=== PATIENT | female | born 1970 | race Caucasian/White ===

== ENCOUNTER 2019-02-08 11:02 | Day surgery (SDC) | payer OTHER ==
--- NOTE | 2019-02-07 21:09 | PDGENHP ---
History and Physical - Chief Complaint Right Hip Pain - History of Present Illness 1. Bilateral~Femoroacetabular impingement (KAREN) Cam type, Right symptomatic with labral tear 2. 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 ~Beverleyenjoys golf , snowboarding, cycling, hiking. Emerald's~right~hip pain started Jan 2018, with~no~recalled trauma or injury, and with~little~previous complaints~but nothing severe enough to cause her to seek care.~Beverleydoes not have~a known history of hip dysplasia. Presentation today is of~posterior~right~hip pain deep inside, but can also be anterior. ~The hip~does~wake her~at night and~does not~click and catch on~her. Sitting~can be a real struggle~for her~and can be worse than standing or walking.~Beverleydoes not~report suffering from lower back pain episodes. Beverleyhas not~participated in physical therapy and has~tried other conservative measures including chiropractic treatments, massage therapy, dry needling,~and electric stimulation.~Concepción~has not~received sufficient symptomatic improvement. Beverleyhas~utilized medication for pain management, including ASA.~Beverleyhas used medication for a few times a week since symptom onset~~. Beverleydenies issues with the left~hip. ~ Beverleyunderstands that~concepción~has a hip and pelvis problem which should be researched and wishes to get a better understanding of~her~hip status, followed by an establishment of a treatment strategy, hoping~concepción~would be able to get back to~her~well being active life. History: Past medical history:~~ Patient~~has no past medical history on file. Relevant familial history:~None which is relevant~ Past surgical history:~ No. Surgery Anesthesia Year Outcome 1 L breast lumpectomy Local 2017 No complications Beverleydenies problematic issues with general anesthesia in the past -- states she had a surgery that she cannot recall what it was in childhood and thinks she had general anesthesia then. I have reviewed, verified and agree with the past medical, surgical, family and social history. Current Medications:~has a current medication list which includes the following prescription(s): ibuprofen. ALLERGIES:~has No Known Allergies. Objective: Physical Examination: Beverleyis 5~feet~8~inches tall and weighs~142~Lbs. Beverleyis AAO x3; she~is well- nourished, in NAD. Skin is warm and dry. ~Breathing is non-labored. ~CV with RRR by pulse. Abdomen is soft, NTND. Currently,~concepción~walks with a~normal~gait. Trendelenburg sign is~negative~and proprioception~is reduced,~both~sides. She~presents~with mild~signs of joint laxity.~Beightons Score:~2 (L elbow, L knee) She~is fit looking. ~~ Lower spine examination is~negative~for sciatic or femoral nerve irritation with negative~SLR &~femoral stretch tests. Range of motion of the spine is normal~for flexion, extension, and rotations,~with no~associated pain. Strength, Sensation and pulses are~normal -~bilaterally Ankles and knees exams are~normal~and~no~mal-alignment is evident.~ Concepción~has~right~1~cm short leg length discrepancy. Thigh circumference is~symmetric~with no evidence for muscle atrophy~on both~ sides. Hip ROM (degrees): FL ER At 90~hip FL IR At 90~hip FL AB AD EX IR Neutral hip ER Neutral hip R 115 45 15 40 5 5 40 45 L 115 40 25 45 5 5 45 40 Specific hip and pelvis tests: Impingement Test SOTO Roll Add. Longus R +++ +++ Negative Negative L Negative Negative Negative Negative Glut. Med ITB Posterior Imp R +++ 5/5 strength Negative 5/5 strength +++~(posterior/lateral) L Negative 5/5 strength Negative 5/5 strength Negative Squeeze test measured~strong Bony Symphysis pubis is~pain free~to touch while concentric activity of the rectus abdominis, does not~produce pain at its insertion. Ilio Psos specific tests are~positive for pain during cycling for~the right hip~ and remarkable for non painful snap HF has~no pain~both hips. Lateral, posterior~capsule tenderness R side. Greater trochanteric burse is~painful~on the right hip. Piriformis tests: FAIR is~negative,~with no~local signs of neuritis related to sciatic nerve. SIJs examination is~produces pain on~right side~with~normal~SOTO in relation and local tenderness. Hamstrings tests are~negative~tendinopathy both hips. On a daily basis, the following percentages reflectLidia's overall total pain: Deep hip:~50% GT:~50% Imaging: Radiology studies which I~have personally reviewed, analyzed and measured are below: XR: AP of the hip and pelvis: Performed in a~good~technique Coccyx to pubic symphysis distance~1.9~cm. 13~degrees caudal [place]~Lines are preserved. Minimal~Pathological signs are seen in the Symphysis Pubis.~ Minimal~Pathological signs are seen at the Ischial~tuberosity. ~ Specific measurements show:~ 0 deg WB (13 deg corrected) NSA~ LCE Sourcil~Angle Sharp's angle Lat. Cam Lat. Pincer C.Over~sign Head~Coverage % ATDmm R 130 32(29) 1(2) 39(41) Neg Neg Neg 76% 22.2 L 130 31(32) 0(0) 40(40) Neg Neg Neg 85% 21.3 Pos. wall sign ISS NAD ~~Dysplasia Comments R Negative Negative 17.7~mm Negative L Negative Negative 18.9~mm Negative Sclerosis Sup. Lat. OA Cysts Joint Space-WBZ Joint Space-Medial R Negative Negative Negative 3.6~mm 3.4~mm L Negative Negative Negative 4.1~mm 3.7~mm X Table lateral: Anterior cam lesion is~seen~on both hips. Alpha Angle: ~ Right~56~degrees Left~52~degrees Impression and plan:Herson Loweryis a~48 y.o.~active female~suffering from symptomatic~Bilateral~ Femoroacetabular impingement (KAREN) Cam type~(RIGHT symptomatic)~and~Greater Trochanteric Bursitis~causing significant disability to~her~and altering~her~ sport and life activities. Physical examination, imaging, and~her~story correspond with the diagnosis mentioned above. I explained that femoroacetabular impingement (KAREN) arises due to a bony or soft tissue conflict between the femur (ball) and acetabulum (socket) caused by an abnormality in the shape of the hip joint. Over time, repetitive impingement can result in damage to the labrum and adjacent surface cartilage within the socket, ultimately giving rise to progressive osteoarthritis of the hip. I explained that although a labral tear can be a source of pain, it is rarely the root of the problem and typically occurs secondary to an underlying abnormality in the shape and mechanics of the hip joint. ~ I reviewed conservative treatment options for KAREN including activity modification to avoid positions of impingement, physical therapy, non-steroidal anti-inflammatory medications, and various injections (corticosteroid and PRP) aimed at reducing inflammation in the hip joint or/and preventing dynamic impingement. PRP injections may promote healing and reduce symptoms in certain cases but it will not repair chronically damaged tissue. Although these measures may help to buy time and reduce current level of symptoms, they are not a definitive solution to the problem given the underlying abnormality in the shape of the hip joint. Patients who have failed conservative management and continue to experience symptoms are candidates for hip arthroscopy, a minimally invasive surgery that can definitively address the underlying problem. Hip arthroscopy typically includes treating the labrum with either repair or reconstruction of the torn labrum; as well as addressing the underlying abnormalities by restoring the normal shape to the hip joint. ~If the cartilage is damaged a Microfracture~ surgical procedure may also be necessary to help stimulate the growth of fibrocartilage. ~If a patient requires a labral reconstruction or a Microfracture, the initial rehabilitation from the surgery may take longer, but the skilled nursing results are typically favorable. I have explained that because of her age and gender, the results of hip arthroscopy are less reproducible/predictable than with younger patients or male patients of the same age. I reviewed the technical aspects of hip arthroscopy including risks, benefits, and expected course of recovery. Emerald understands that hip arthroscopy is a minimally invasive outpatient procedure carried out through small incisions on the outer aspect of the hip joint. During surgery, the labral tear will be identified and either repaired or reconstructed using bone anchors and suture material. Additionally, any excessive bone will be removed with a high-speed anita to reshape the hip joint and restore normal anatomy. Risks include infection, bleeding, injury to nearby nerves or vessels, stiffness, persistent pain, instability, venous thromboembolic disease, and traction related complications including temporary foot numbness. Rarely, revision surgery may be required to address these problems. Overall recovery takes approximately 4 8 months depending on the extent of damage and degree of repair. In the event that the labral tissue quality is inadequate for successful repair and healing, Emerald understands that a labral reconstruction will be performed. This procedure entails placing a cadaver tissue graft within the hip joint and stabilizing it with bone anchors to build a new labrum. The overall recovery time for labral reconstruction is similar to that of labral repair, although the surgical procedure takes longer to perform. Beverleywill review the info presented. We will refer Emerald to PT at this time. In order to better evaluate the soft tissues and cartilage of the hip joint, I will order an MRI scan. In order to obtain more detailed information regarding the alignment, orientation, and shape of the bony hip and pelvis I will order a CT scan to be performed. The results of the CT scan, including femoral torsion and acetabular version measured values and 3D images, will aid me in deciding on the best treatment strategy and surgical pre-planning. Beverleywill return for a follow-up visit after her imaging studies and starting PT to see if she has any clinical improvement. Beverleyis happy with this plan. I have also supplied~her~with handouts, outlining the expected surgical treatment and rehab involved. I wish~Beverleyall the best, ~~ Libra Post MD History Information - Allergies/Home Medication List Allergies/Adverse Reactions: No Known Allergies Allergy (Unverified 02/01/19 12:22) Home Medications: Herbals/Supplements -Info Only 02/01/19 [Last Taken Unknown] I have personally reviewed and updated: medical history - Social History Smoking Status: Never smoked Review of Systems Review of Systems: Physical Exam Physical Exam:
[2019-02-08] MEDS ORDERED: PREGABALIN 150 MG CAP PO ONE (11:10)
[2019-02-08] MEDS ORDERED: ceFAZolin 2 GM/DEXTROSE 100 ML IV ONE (11:10)
[2019-02-08] MEDS ORDERED: ACETAMINOPHEN 500 MG TAB PO ONE (11:10)
[2019-02-08] MEDS ORDERED: LR 1,000 ML IV ONE (11:12)
--- NOTE | 2019-02-08 14:42 | PDANEPAE ---
ANE Past Medical History - Cardiovascular History Hx Hypertension: No Hx Arrhythmias: No Hx Chest Pain: No Hx Coronary Artery / Peripheral Vascular Disease: No Hx CHF / Valvular Disease: No Hx Palpitations: No - Pulmonary History Hx COPD: No Hx Asthma/Reactive Airway Disease: No Hx Recent Upper Respiratory Infection: No Hx Oxygen in Use at Home: No Hx Sleep Apnea: No Sleep Apnea Screening Result - Last Documented: Negative Pulmonary History Comment: EXERCISE INDUCED ASTHMA. NO INHALER - Neurologic History Hx Cerebrovascular Accident: No Hx Seizures: No Hx Dementia: No - Endocrine History Hx Diabetes: No - Renal History Hx Renal Disorders: No - Liver History Hx Hepatic Disorders: No - Neurological & Psychiatric Hx Hx Neurological and Psychiatric Disorders: No - Cancer History Hx Cancer: No - Congenital Disorder History Hx Congenital Disorders: No - GI History Hx Gastrointestinal Disorders: No - Other Health History Other Health History: NEG - Chronic Pain History Chronic Pain: Yes (R HIP) - Surgical History Prior Surgeries: HEMANGIOMA ABD INFANT. COLONOSCOPY ANE Review of Systems Review of Systems: - Exercise capacity METS (RN): 6 METS ANE Patient History - Allergies Allergies/Adverse Reactions: No Known Allergies Allergy (Unverified 02/01/19 12:22) - Home Medications Home Medications: Herbals/Supplements -Info Only 02/01/19 [Last Taken 1 Week Ago ~02/01/19] - NPO status NPO Since - Liquids (Date): 02/08/19 NPO Since - Liquids (Time): 08:00 NPO Since - Solids (Date): 02/07/19 NPO Since - Solids (Time): 17:00 - Smoking Hx Smoking Status: Never smoked - Family Anes Hx Family Hx Anesthesia Complications: NEG ANE Labs/Vital Signs - Vital Signs Blood Pressure: 116/69 Heart Rate: 62 Respiratory Rate: 16 O2 Sat (%): 98 Height: 173.99 cm Weight: 63.503 kg ANE Physical Exam - Airway Neck exam: FROM Mallampati Score: Class 1 Mouth exam: normal dental/mouth exam - Pulmonary Pulmonary: no respiratory distress, no rales or rhonchi, clear to auscultation - Cardiovascular Cardiovascular: regular rate and rhythym, no murmur, rub, or gallop - ASA Status ASA Status: I ANE Anesthesia Plan Anesthesia Plan: general endotracheal anesthesia
[2019-02-08] MEDS ORDERED: BUPIVACAINE/EPI 0.25% 10 ML SDV ONE (14:49)
[2019-02-08] MEDS ORDERED: EPINEPHrine 30 MG/30 ML MDV (0.1 MG/0.1 ML) ONE (14:50)
[2019-02-08] MEDS ORDERED: PROPOFOL/EMULSION 500 MG/50 ML BOTTLE IV ONE (14:50)
[2019-02-08] MEDS ORDERED: fentaNYL 100 MCG/2 ML INJ ONE ×2 (14:54→19:18)
[2019-02-08] MEDS ORDERED: MIDAZOLAM 2 MG/2 ML VIAL ONE (14:55)
[2019-02-08] MEDS ORDERED: PROPOFOL 200 MG/20 ML VIAL ONE ×2 (14:55→17:19)
[2019-02-08] MEDS ORDERED: ALBUMIN 5% 250 ML BOTTLE IV ONE (14:59)
[2019-02-08] MEDS ORDERED: MAGNESIUM SULFATE 1 GM/2 ML VIAL ONE (14:59)
[2019-02-08] MEDS ORDERED: LIDOCAINE 2% 5 ML SDV ONE (15:08)
[2019-02-08] MEDS ORDERED: METOCLOPRAMIDE 10 MG/2 ML VIAL ONE (15:08)
[2019-02-08] MEDS ORDERED: CALCIUM CHLORIDE 1 GM/10 ML INJ ONE (15:08)
[2019-02-08] MEDS ORDERED: KETOROLAC 30 MG/1 ML SDV ONE (15:08)
[2019-02-08] MEDS ORDERED: ONDANSETRON 4 MG/2 ML VIAL ONE (15:08)
[2019-02-08] MEDS ORDERED: ROCURONIUM 50 MG/5 ML VIAL ONE ×2 (15:08→16:48)
[2019-02-08] MEDS ORDERED: ePHEDrine SULFATE 25 MG/5 ML SYR ONE (15:37)
[2019-02-08] MEDS ORDERED: LR 500 ML IV PRN (15:43)
[2019-02-08] MEDS ORDERED: DIAZEPAM 5 MG/ML 1 ML SYR IVP PRN (15:43)
[2019-02-08] MEDS ORDERED: fentaNYL 100 MCG/2 ML INJ IVP PRN (15:43)
[2019-02-08] MEDS ORDERED: ACETAMINOPHEN 500 MG TAB PO PRN (15:43)
[2019-02-08] MEDS ORDERED: MEPERIDINE 25 MG/0.5 ML AMP IVP PRN (15:43)
[2019-02-08] MEDS ORDERED: HYDROCODONE/APAP 5/325 TAB PO PRN (15:43)
[2019-02-08] MEDS ORDERED: DEXAMETHASONE 4 MG/ML VIAL IVP PRN (15:43)
[2019-02-08] MEDS ORDERED: HYDROmorphONE/DILAUDID 2 MG/ML INJ IVP PRN (15:43)
[2019-02-08] MEDS ORDERED: METOCLOPRAMIDE 10 MG/2 ML VIAL IVP PRN (15:43)
[2019-02-08] MEDS ORDERED: ALBUTEROL 3 ML DEYVIAL IH PRN (15:43)
[2019-02-08] MEDS ORDERED: ONDANSETRON 4 MG/2 ML VIAL IVP PRN (15:43)
[2019-02-08] MEDS ORDERED: NALOXONE HCL 0.4 MG/ML INJ IVP PRN (15:43)
[2019-02-08] MEDS ORDERED: PROMETHAZINE HCL 25 MG/ML INJ IVP PRN (15:43)
--- NOTE | 2019-02-08 19:15 | POSTOPPROG ---
Post Op Note Date of Operation: 02/08/19 Surgeon: Tarik Herbert Floater Operator: Dr. Vallejo Anesthesia: GET(General Endotracheal) Pre-op Diagnosis: RIGHT KAREN Post-op Diagnosis: RIGHT KAREN Procedure: Right Hip Arthroscopy Inf/Abcess present in the surg proc area at time of surgery?: No
[2019-02-08] MEDS ORDERED: oxyCODONE IR 5 MG TAB ONE ×2 (19:41→20:16)
[2019-02-08] MEDS: oxyCODONE IR 5 MG TAB PO PRN ×2 (19:44→20:16)
[2019-02-08 20:41] VITALS: BP 108/64
== END 2019-02-08 20:50 | disposition home or self-care (01) ==
LOC: FSGY 11:02
PROVIDERS: ATTEND Orthopaedic Surgery Sports Medicine
PROC: BQ101ZZ Fluoroscopy of Right Hip using Low Osmolar Contrast (ICD-10-PCS; principal; 2019-02-08 13:15)
PROC: 0SQ94ZZ Repair Right Hip Joint, Percutaneous Endoscopic Approach (ICD-10-PCS; principal; 2019-02-08 13:15)
PROC: 0SB94ZZ Excision of Right Hip Joint, Percutaneous Endoscopic Approach (ICD-10-PCS; principal; 2019-02-08 13:15)
DX: M25.851 Other specified joint disorders, right hip (principal); M70.61 Trochanteric bursitis, right hip; M65.88 Other synovitis and tenosynovitis, other site
CPT/HCPCS: C1713; J0171; J0690; J1885; J2250; J2405; J2704; J2765; J3010; J3475; P9041